=== PATIENT | female | born 1970 | race Caucasian/White ===

== ENCOUNTER 2020-07-31 20:56 | Emergency (ER) | payer OTHER ==
[~2020-07-31] VITALS: Ht 157.5 cm; Wt 54.4 kg
[~2020-07-31 20:56] MED LIST: IRON325 ( 65 ) PO; TYLENOL-CODEINE1 TAB PO
[2020-07-31] MEDS ORDERED: ZOCOR20 MG (21:07)
== END 2020-07-31 22:12 | disposition home or self-care (01) ==
LOC: ER 20:56
DX: J02.8 Acute pharyngitis due to other specified organisms (principal)

== ENCOUNTER 2021-05-08 14:49 | Emergency (ER) | payer OTHER ==
[~2021-05-08] VITALS: Ht 157.5 cm; Wt 56.7 kg
[~2021-05-08 14:49] MED LIST changes: +ZOCOR20 MG
[2021-05-08] MEDS ORDERED: DICLOFENAC SODI75 MG PO (17:53)
== END 2021-05-08 18:04 | disposition home or self-care (01) ==
LOC: ER 14:49
DX: S51.011A Laceration without foreign body of right elbow, initial encounter (principal); W10.8XXA Fall (on) (from) other stairs and steps, initial encounter; Y93.89 Activity, other specified; Y92.018 Other place in single-family (private) house as the place of occurrence of the external cause; Y99.8 Other external cause status; S99.821A Other specified injuries of right foot, initial encounter; S30.810A Abrasion of lower back and pelvis, initial encounter

== ENCOUNTER 2021-05-25 17:30 | Emergency (ER) | payer OTHER ==
[~2021-05-25] VITALS: Ht 157.5 cm; Wt 56.7 kg
[~2021-05-25 17:30] MED LIST changes: +DICLOFENAC SODI75 MG PO
[2021-05-25] MEDS ORDERED: DICLOFENAC POTA50 MG PO (21:32)
== END 2021-05-25 22:02 ==
LOC: ER 17:30
DX: M70.22 Olecranon bursitis, left elbow (principal)

== ENCOUNTER 2025-03-07 12:22 | Emergency (ER) | payer OTHER ==
[~2025-03-07] VITALS: Ht 157.5 cm; Wt 59.9 kg
[~2025-03-07 12:22] MED LIST changes: +DICLOFENAC POTA50 MG PO
[2025-03-07] MEDS ORDERED: CRESTOR40 MG PO (12:49)
[2025-03-07] MEDS ORDERED: HORIZANT300 MG (12:49)
[2025-03-07] MEDS ORDERED: 0.9 % SODIUM CHLORIDE 1,000 ML IV ONE (13:30)
[2025-03-07] MEDS ORDERED: FAMOtidine 10 MG/ML (4ML VIAL) IV ONE (13:30)
[2025-03-07] MEDS ORDERED: ONDANSETRON HCL 2 MG/ML VIAL IV ONE (13:30)
[2025-03-07 14:00] LABS: BASO % 0.3 % (0.1-1.2); EOS # 0.15 (0.04-0.54); EOS % 3.8 % (0.7-7.0); LYMPH # 0.89 (1.18-3.74); LYMPH % 22.3 % (19.3-53.1); MEAN PLATELET VOLUME 10.00 fl (9.4-12.4); MONO # 0.42 (0.24-0.82); MONO % 10.5 % (4.7-12.5); NEUT # 2.51 (1.56-6.13); NEUT % 62.6 % (34.0-71.1); RED CELL DISTRIBUTION WIDTH 13.2 % (11.6-14.4)
[2025-03-07 14:28] LABS: ALT/SGPT 46.0 U/L (12-78); AST/SGOT 26.0 U/L (15-37); BILIRUBIN TOTAL 0.32 mg/dL (0.3-1.2); BUN CREA RATIO 9.0 (7.0-25.0); CREATININE SERUM 0.56 mg/dL (0.55-1.02); GFR 111.98; GLOBULINA 3.6 G/DL (2.4-3.5); GLUCOSE FASTING 99.0 mg/dL (65-100); OSMOLALITY SERUM 282.0 MOSM/KG (275-295)
[2025-03-07 15:08] LABS: COVID-19 AG NEGATIVE (NEGATIVE)
[2025-03-07] MEDS ORDERED: PROBIOTIC1 EAC2 PO (16:10)
[2025-03-07] MEDS ORDERED: ZOFRAN8 MG PO (16:10)
[2025-03-07] MEDS ORDERED: PEPCID AC20 MG PO (16:10)
== END 2025-03-07 16:16 | disposition home or self-care (01) ==
LOC: ER 12:22
PROVIDERS: General Practice
DX: R19.7 Diarrhea, unspecified (principal); R11.2 Nausea with vomiting, unspecified; Z20.822 Contact with and (suspected) exposure to COVID-19